=== PATIENT | male | born 1955 | race Caucasian/White ===

== ENCOUNTER 2020-09-03 16:45 | Day surgery (SDCO) | payer MEDICARE, OTHER ==
[2020-09-03 17:54] LABS: BASOPHIL 0.7 % (0-2); EOSINOPHIL 1.2 % (0-7); HCT 46.3 % (42.0-52.0); LYMPHOCYTE 19.2 % (15-48); MCH 30.6 pg (25.0-31.0); MCHC 34.6 g/dL (32.0-36.0); MCV 88.5 fL (78.0-100.0); MONOCYTE 6.5 % (0-12); MPV 9.6 fL (6.0-9.5); NEUTROPHIL 71.4 % (41-80); NRBC 0; PLT 415 K/uL (150-400); RBC 5.23 M/uL (4.70-6.00); WBC 13.5 K/uL (4.0-10.5)
[2020-09-03 18:04] LABS: BILIRUBIN NEGATIVE (NEGATIVE); BLOOD 1+ Ery/uL (NEGATIVE); CLARITY CLEAR (CLEAR); COLOR YELLOW (YELLOW); GLUCOSE (U) NORMAL (NORMAL); LEUKOCYTES NEGATIVE Leu/uL (NEGATIVE); NITRITE NEGATIVE (NEGATIVE); PROTEIN NEGATIVE (NEGATIVE); UROBILINOGEN 0.2 mg/dL (0.2-1.0); pH 6.5 (5.0-9.0)
[2020-09-03 18:15] LABS: SQUAMOUS EPITHELIAL CELLS RARE
[2020-09-03 18:16] LABS: BILIRUBIN - TOTAL 0.3 mg/dL (0.2-1.0); BUN/CREAT RATIO (CALC) 14.9 RATIO; CREATININE 1.01 mg/dL (0.67-1.17); GLOBULIN (CALCULATION) 4.8 g/dL; TOTAL PROTEIN 8.8 g/dL (6.4-8.2)
[2020-09-04] MEDS ORDERED: METOPROLOL SUCC50 MG PO (00:09)
[2020-09-04] MEDS ORDERED: QUETIAPINE FUM300 MG PO (00:10)
[2020-09-04] MEDS ORDERED: MELOXICAM15 MG PO (00:11)
[2020-09-04] MEDS ORDERED: OMEPRAZOLE 20MG20 MG PO (00:12)
[2020-09-04] MEDS ORDERED: PRAVASTATIN SOD40 MG PO (00:13)
[2020-09-04] MEDS ORDERED: SERTRALINE HCL100 MG PO (00:14)
[2020-09-04 06:16] LABS: BASOPHIL 0.9 % (0-2); EOSINOPHIL 0.9 % (0-7); HCT 43.8 % (42.0-52.0); HGB 14.6 g/dl (13.2-18.0); LYMPHOCYTE 21.6 % (15-48); MCH 30.2 pg (25.0-31.0); MCHC 33.3 g/dL (32.0-36.0); MCV 90.7 fL (78.0-100.0); MONOCYTE 8.2 % (0-12); MPV 9.1 fL (6.0-9.5); NEUTROPHIL 67.8 % (41-80); NRBC 0; PLT 345 K/uL (150-400); RBC 4.83 M/uL (4.70-6.00); RDW 14.5 % (11.5-14.0); WBC 12.8 K/uL (4.0-10.5)
[2020-09-04 06:36] LABS: ALBUMIN 3.4 g/dL (3.4-5.0); BILIRUBIN - TOTAL 0.5 mg/dL (0.2-1.0); BUN/CREAT RATIO (CALC) 11.9 RATIO; CREATININE 1.01 mg/dL (0.67-1.17); GLOBULIN (CALCULATION) 4.2 g/dL; POTASSIUM 4.4 mmol/L (3.5-5.1); TOTAL PROTEIN 7.6 g/dL (6.4-8.2)
[2020-09-04] MEDS ORDERED: AUGMENTIN 875-1 EACH PO (14:24)
[2020-09-04] MEDS ORDERED: ZOFRAN4 M1 PO (14:24)
[2020-09-04] MEDS ORDERED: LACTINEX1 EACH PO (14:24)
[2020-09-04] MEDS ORDERED: PERCOCET 5-3251 EACH PO (14:24)
--- NOTE | 2020-09-05 08:06 | NUR ---
PATIENT WAS DOING WELL DURING MORNING ROUNDS BUT WHEN GOING INTO DO MEDICATIONS, THE PATIENT WAS FOULD WITH TELE, PULSE OX AND SCD TOOK OFF, HE UNPLUGGED HIS IV. PATIENT STATED THAT HE THOUGHT HE WAS GOING HOME. WAS ATLITTLE DISORIENTED.
--- NOTE | 2020-09-05 13:04 | NUR ---
MET WITH PT. IN HIS ROOM. PT. STATES THAT HE IS RETIRED, HE IS INDEPENDENT. HIS GIRLFRIEND, AVELINO, RESIDES WITH HIM. AT THIS TIME THERE ARE NO DC NEEDS. IF ANY DC NEEDS ARISE PLEASE ADVISE.
== END 2020-09-05 14:50 | disposition home or self-care (01) ==
LOC: FER 16:45 → FOR 18:59 → FMS 21:06
PROVIDERS: Emergency Medicine; Nurse Practitioner; ADMIT Internal Medicine
DX: K80.13 Calculus of gallbladder with acute and chronic cholecystitis with obstruction (principal); K82.1 Hydrops of gallbladder; I10 Essential (primary) hypertension; E78.00 Pure hypercholesterolemia, unspecified; G89.29 Other chronic pain; M54.9 Dorsalgia, unspecified; E78.5 Hyperlipidemia, unspecified; Z87.891 Personal history of nicotine dependence; Z79.1 Long term (current) use of non-steroidal anti-inflammatories (NSAID); Z79.899 Other long term (current) drug therapy; Z88.5 Allergy status to narcotic agent; Z20.822 Contact with and (suspected) exposure to COVID-19
CPT/HCPCS: 36415; 80053; 81001; 82150; 83690; 84145; 85025; 94762; C9113; G0378; J1100; J1170; J2060; J2405; J2543; J2704; J2710; J3010; J7030; J7120; U0002